=== PATIENT | male | born 1940 | race Hispanic/Latino ===

== ENCOUNTER 2017-11-19 14:04 | Inpatient (IN) | payer MEDICARE ==
[2017-11-19] MEDS ORDERED: DUONEB *Not for PRN Use IH ONE (15:06)
--- NOTE | 2017-11-19 16:30 | Emergency Department Report ---
ED Shortness of Breath HPI - General Chief Complaint: Dyspnea/Respdistress Stated Complaint: ABDOMINAL PAIN Time Seen by Provider: 11/19/17 16:29 Source: EMS Mode of arrival: Ambulatory Limitations: No Limitations - History of Present Illness MD Complaint: shortness of breath -: Gradual Severity: moderate Pain Scale: 5 Quality: aching Consistency: constant Improves With: nothing Worsens With: nothing Associated Symptoms: abdominal pain Treatments Prior to Arrival: none - Related Data Home Oxygen Therapy: Yes Previous Rx's Medication Instructions Recorded Last Taken Type ALBUTEROL Inhaler [ProAir HFA 2 puff IH QID PRN #1 can 11/07/17 Unknown Rx Inhaler] Furosemide [Lasix TAB] 40 mg PO QDAY #30 tablet 11/07/17 Unknown Rx Lisinopril [Zestril TAB] 2.5 mg PO QDAY #30 tablet 11/07/17 Unknown Rx predniSONE [Deltasone] 20 mg PO QDAY #26 tab 11/07/17 Unknown Rx Allergies Allergy/AdvReac Type Severity Reaction Status Date / Time No Known Allergies Allergy Verified 11/02/17 02:06 ED Review of Systems ROS: Stated complaint: ABDOMINAL PAIN Other details as noted in HPI Comment: All other systems reviewed and negative Constitutional: denies: chills, fever Eyes: denies: eye pain ENT: denies: ear pain, epistaxis Respiratory: cough, shortness of breath Cardiovascular: denies: chest pain Endocrine: no symptoms reported Gastrointestinal: abdominal pain. denies: nausea, vomiting Genitourinary: denies: urgency, dysuria, frequency Musculoskeletal: denies: back pain, joint swelling Skin: denies: rash, change in color Neurological: denies: headache, numbness Psychiatric: denies: anxiety Hematological/Lymphatic: denies: easy bleeding, easy bruising ED Past Medical Hx - Past Medical History Previous Medical History?: Yes Hx Hypertension: No Hx CVA: No Hx Heart Attack/AMI: No Hx Congestive Heart Failure: Yes (unknown on lasix) Hx Diabetes: No Hx Deep Vein Thrombosis: No Hx Pulmonary Embolism: No Hx GERD: No Hx Liver Disease: No Hx Renal Disease: No Hx of Cancer: No Hx Sickle Cell Disease: No Hx Arthritis: No Hx Headaches / Migraines: No Hx Seizures: No Hx Kidney Stones: No Hx Psychiatric Treatment: No Hx Asthma: No Hx COPD: Yes Hx Tuberculosis: No Hx Dementia: No Hx HIV: No - Surgical History Past Surgical History?: Yes Hx Coronary Stent: No Hx Open Heart Surgery: No Hx Pacemaker: No Hx Internal Defibrillator: No Hx Cholecystectomy: No Hx Appendectomy: No Hx Breast Surgery: No Additional Surgical History: chest tube - Social History Smoking Status: Former Smoker Substance Use Type: None - Medications Home Medications: Home Medications Medication Instructions Recorded Confirmed Last Taken Type ALBUTEROL Inhaler [ProAir HFA 2 puff IH QID PRN #1 can 11/07/17 Unknown Rx Inhaler] Furosemide [Lasix TAB] 40 mg PO QDAY #30 tablet 11/07/17 Unknown Rx Lisinopril [Zestril TAB] 2.5 mg PO QDAY #30 tablet 11/07/17 Unknown Rx predniSONE [Deltasone] 20 mg PO QDAY #26 tab 11/07/17 Unknown Rx ED Physical Exam - General Limitations: No Limitations General appearance: alert, in no apparent distress - Head Head exam: Present: atraumatic, normocephalic, normal inspection - Eye Eye exam: Present: normal appearance, PERRL, EOMI Pupils: Present: normal accommodation - ENT ENT exam: Present: normal exam, other (Hearing Impaired.) - Neck Neck exam: Present: normal inspection, full ROM - Respiratory Respiratory exam: Present: normal lung sounds bilaterally. Absent: respiratory distress, wheezes, rhonchi - Cardiovascular Cardiovascular Exam: Present: regular rate, normal heart sounds - GI/Abdominal GI/Abdominal exam: Present: soft, tenderness (RUQ tenderness to palpation.), guarding, normal bowel sounds. Absent: rebound - Rectal Rectal exam: Present: deferred - Extremities Exam Extremities exam: Present: pedal edema - Back Exam Back exam: Present: normal inspection, full ROM - Neurological Exam Neurological exam: Present: alert, oriented X3, CN II-XII intact - Psychiatric Psychiatric exam: Present: normal affect, normal mood - Skin Skin exam: Present: warm, dry, intact, normal color ED Course Vital Signs 11/19/17 11/19/17 11/19/17 14:59 17:55 18:00 Temperature 97.8 F Pulse Rate 64 Respiratory 25 H Rate Blood Pressure 107/67 128/71 103/63 Blood Pressure 107/67 [Right] O2 Sat by Pulse 100 Oximetry 11/19/17 11/19/17 11/19/17 18:09 18:14 18:17 Temperature 98.3 F 98.3 F Pulse Rate 100 H 107 H Respiratory 28 H 28 H 28 H Rate Blood Pressure Blood Pressure 103/63 103/68 [Right] O2 Sat by Pulse 92 86 95 Oximetry - Reevaluation(s) Reevaluation #1: 11/19/17 20:[address] Smith the hospitalist on-call. He will admit patient to the hospital for further evaluation and management. I will also consult pulmonology. ED Medical Decision Making - Lab Data Result diagrams: 11/19/17 16:29 11/19/17 16:49 - Radiology Data Radiology results: report reviewed, image reviewed - Medical Decision Making Abdominal Pain. Shortness of Breath. Critical care attestation.: If time is entered above; I have spent that time in minutes in the direct care of this critically ill patient, excluding procedure time. ED Disposition Clinical Impression: Loculated pleural effusion, Pleural effusion, Shortness of breath, Right upper quadrant abdominal pain Disposition: OP ADMIT IP TO THIS HOSP Is pt being admited?: Yes Does the pt Need Aspirin: No Condition: Stable Referrals: ONEIL TURCIOS MD [Primary Care Provider] - 3-5 Days Time of Disposition: 20:21
[2017-11-19 16:56] LABS: Hematocrit 36.8 % (35.5-45.6); Hemoglobin 12.1 gm/dl (11.8-15.2); Mean Corpuscular HGB Conc 33 % (32-34); Mean Corpuscular Hemoglobin 29 pg (28-32); Mean Corpuscular Volume 88 fl (84-94); Platelet Count 201 K/mm3 (140-440); Red Cell Distribution Width 13.3 % (13.2-15.2)
[2017-11-19 17:06] LABS: BUN/Creatinine Ratio 38; Blood Urea Nitrogen 23 mg/dL (9-20); Calcium 8.1 mg/dL (8.4-10.2); Hemolysis Index 10
[2017-11-19 17:10] LABS: INR 0.89 (0.87-1.13)
[2017-11-19 17:11] LABS: Partial Thromboplastin Time 24.2 Sec. (24.2-36.6)
[2017-11-19 17:17] LABS: Creatine Kinase MB 2.9 ng/mL (0.0-4.0)
[2017-11-19 17:23] LABS: Alanine Aminotransferase 12 units/L (7-56); Albumin 2.7 g/dL (3.9-5); BUN/Creatinine Ratio 40; Blood Urea Nitrogen 24 mg/dL (9-20); Calcium 8.3 mg/dL (8.4-10.2); Hemolysis Index 9; Lipase 14 units/L (13-60)
[2017-11-19 17:38] LABS: Band Neutrophils # (Manual) 0.1 K/mm3; Basophils % (Manual) 0 % (0.0-1.8); Eosinophils % (Manual) 0 % (0.0-4.3); Platelet Estimate Consistent w Auto; Total Cells Counted 100
--- NOTE | 2017-11-19 17:58 | XRay Report ---
FINAL REPORT EXAM: XR CHEST ROUTINE 2V HISTORY: Shortness of breath TECHNIQUE: PA and lateral views of the chest PRIORS: CXR 11/04/2017 FINDINGS: Lines, tubes, and devices: N/A Lungs and pleura: Trachea is normal in position. Chronic blunting of both costophrenic angles is stable consistent with bilateral effusions. Linear scarring in the right midlung zone is again noted infiltrate in the right lung base has improved. Cardiomediastinal silhouette: Cardiac and mediastinal silhouettes are unremarkable. Other: Bony structures are intact. IMPRESSION: Improved infiltrate in the right base. Stable bilateral effusions.
--- NOTE | 2017-11-19 19:13 | Cat Scan Report ---
FINAL REPORT EXAM: CT ABDOMEN W CON HISTORY: RUQ abdominal pain TECHNIQUE: Standard enhanced CT of the abdomen. Coronal and sagittal reconstruction was also performed. Delayed imaging through the kidneys and bladder was obtained. Contrast: Intravenous contrast given PRIORS: CT chest 10/31/2017 FINDINGS: Within the abdomen, the liver, spleen, gallbladder, adrenal glands, and right kidney are unremarkable. There is a bilobed 3.4 x 2.1 cm cyst off the lower pole left kidney. There is thinning of the pancreas again noted. No evidence for retroperitoneal lymphadenopathy is seen. The bowel loops have normal caliber. No soft tissue mass, fluid collection, inflammatory change, or free air is seen within the abdomen. The appendix is not visualized. Celiac artery origin off the aorta is not visualized. There is also narrowing of the superior mesenteric artery (sagittal image 78, series 605). Images through the upper abdomen include the lung bases which are further evaluation on the dedicated CT chest performed at the same time. Bony structures show is remote fracture deformities of the posterior left 9th and 10th ribs causing a bony bridging. Severe degenerative disc narrowing throughout the entire lumbar spine is seen. Focal 1.3 cm lucency at L2 is of uncertain clinical significance and not imaged previously. However, this is associated with extensive degenerative change at that level and may be a subchondral cyst. There is extensive osteophytic bridging from L2. IMPRESSION: 1. no acute intra-abdominal process noted. 2. Degenerative changes in the lumbar spine 3. Low-density cyst in the left kidney 4. 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
--- NOTE | 2017-11-19 19:22 | Cat Scan Report ---
FINAL REPORT EXAM: CT CHEST W CON HISTORY: Dyspnea TECHNIQUE: Standard enhanced CT of the chest at 2.5 mm axial increments. Coronal and sagittal reconstruction was also obtained. Contrast: Intravenous contrast given PRIORS: CT chest 11/02/2017 FINDINGS: Underlying COPD is again noted. There is pleural-based density in the lateral left upper lobe (axial image 71, series 2) which is similar to the previous study. No pneumothorax is currently identified. Alveolar infiltrate seen previously in the right lung have resolved. However, there is a large free-flowing low-density right pleural effusion with partial loculation along the lateral chest wall. Minimal adjacent compressive atelectasis in the right lower lobe is seen. There a tiny left pleural effusion with adjacent consolidation in the left lung base medially. This finding is similar to the previous study. There is no evidence for mediastinal, hilar, or axillary adenopathy. The esophagus is collapsed. The trachea is midline. Cardiovascular structures are within normal limits. Cardiac size and aorta are normal. Images through the lung bases include upper abdomen which will be further evaluated with the dedicated CT abdomen performed at the same time. Bony structures show no focal abnormalities. Remote healed fractures involving the left 5th through 7th ribs are noted. There is bony bridging between the posterior left 9th and 10th ribs due to remote fracture. IMPRESSION: 1. Resolution of previous right-sided pneumothorax and right-sided alveolar infiltrates 2. Large free-flowing right pleural effusion which is partially loculated along the lateral chest wall 3. Small left pleural effusion with adjacent consolidation in the left base medially, stable. 4. Underlying COPD again noted 5. Numerous remote left rib deformities. 5. Stable rounded pleural-based scarring in the lateral left upper lobe
[2017-11-19] MEDS ORDERED: LEVAQUIN 750MG/150ML 750 MG/150 ML BAG IV ONE (19:45)
[2017-11-19 20:10] LABS: Bacteria,Urine 1+ /HPF (Negative); Bilirubin,Urine NEG (Negative); Blood,Urine NEG (Negative); Color,Urine Yellow (Yellow); Mucus,Urine FEW /HPF; Protein,Urine <15 mg/dL mg/dL (Negative); Urobilinogen,Urine < 2.0 mg/dL (<2.0)
[2017-11-19] MEDS ORDERED: MORPHINE IV PRN ×2 (20:34→22:09)
[2017-11-19] MEDS ORDERED: TYLENOL PO PRN (22:09)
[2017-11-19] MEDS ORDERED: SODIUM CHLORIDE FLUSH SYRINGE 10 ML IV PRN (22:09)
[2017-11-19] MEDS ORDERED: ZOFRAN IV PRN (22:09)
--- NOTE | 2017-11-19 22:12 | History and Physical Report ---
History of Present Illness Date of examination: 11/19/17 History of present illness: 77-year-old man with a history of CHF, COPD on home oxygen, so the emergency room with complaints of abdominal pain located in the right upper quadrant, stated that the pain feels like his ulcer pain, constant, intensity while attending, no radiation, he can't identify exacerbating or relieving factors. No nausea vomiting, diarrhea, fever or chills. Complained of cough productive of yellow phlegm, shortness of breath Review of systems Constitutional: no weight loss, chills Ears, eyes, nose, mouth and throat: no nasal congestion, no nasal discharge, no sinus pressure, no vision change, no red eye. Neck: No neck pain or rigidity. Cardiovascular: no chest pain, palpitations Respiratory:+ cough Gastrointestinal: no abdominal pain, hematochezia Genitourinary : no dysuria, frequency , no hematuria Musculoskeletal: no joint swelling or muscle ache Integumentary: no rash, no pruritis Neurological: no parathesias, no numbness, no focal weakness Endocrine: no cold or heat intolerance, no polyuria or polydipsia Hematologic/Lymphatic: no easy bruising, no easy bleeding, no gland swelling Allergic/Immunologic: no urticaria, no angioedema. PAST MEDICAL HISTORY: CHF, COPD on home oxygen PAST SURGICAL HISTORY: peptic ulcer surgery SOCIAL HISTORY: Denies alcohol, tobacco, drugs FAMILY HISTORY: Hypertension Medications and Allergies Allergies Allergy/AdvReac Type Severity Reaction Status Date / Time No Known Allergies Allergy Verified 11/02/17 02:06 Home Medications Medication Instructions Recorded Confirmed Last Taken Type ALBUTEROL Inhaler [ProAir HFA 2 puff IH QID PRN #1 can 11/07/17 Unknown Rx Inhaler] Furosemide [Lasix TAB] 40 mg PO QDAY #30 tablet 11/07/17 Unknown Rx Lisinopril [Zestril TAB] 2.5 mg PO QDAY #30 tablet 11/07/17 Unknown Rx predniSONE [Deltasone] 20 mg PO QDAY #26 tab 11/07/17 Unknown Rx Active Meds: Active Medications Morphine Sulfate (Morphine) 4 mg IV Q4H PRN PRN Reason: Pain, Moderate (4-6) Last Admin: 11/19/17 20:48 Dose: 4 mg Exam - Physical Exam Narrative exam: Gen. appearance: Patient lying in bed, no apparent distress HEENT: Normocephalic, atraumatic, pupils equally round and reactive to light, extraocular movement intact, and no sclericterus,. No JVD or thyromegaly or nodule,neck supple, no carotid bruit ,mucous membranes moist, no exudate or erythema Heart: S1, S2, regular rate and rhythm Lungs: Crackles bilaterally, breathing comfortable Abdomen: Positive bowel sounds, nontender, nondistended, no organomegaly Extremity:+ edema, no cyanosis, clubbing Skin: No rash, nodules, warm, dry Neuro: Oriented 3, cranial nerves II-12 intact, speech is fluent, motor and sensory intact - Constitutional Vitals: Temp Pulse Resp BP Pulse Ox 98.2 F 99 H 16 99/57 100 11/19/17 19:30 11/19/17 21:00 11/19/17 21:18 11/19/17 21:00 11/19/17 21:00 Results - Labs CBC & Chem 7: 11/19/17 16:29 11/19/17 16:49 Labs: Abnormal lab results 11/19/17 11/19/17 11/19/17 Range/Units 16:29 16:29 16:49 WBC 14.1 H (4.5-11.0) K/mm3 Seg Neuts % (Manual) 93.0 H (40.0-70.0) % Lymphocytes % (Manual) 1.0 L (13.4-35.0) % Seg Neutrophils # Man 13.1 H (1.8-7.7) K/mm3 Lymphocytes # (Manual) 0.1 L (1.2-5.4) K/mm3 D-Dimer 1457.94 H (0-234) ng/mlDDU Sodium 132 L (137-145) mmol/L Chloride 89.5 L (98-107) mmol/L Carbon Dioxide 34 H (22-30) mmol/L BUN 23 H (9-20) mg/dL Creatinine 0.6 L (0.8-1.5) mg/dL Glucose 116 H (75-100) mg/dL Calcium 8.1 L (8.4-10.2) mg/dL Total Creatine Kinase (55-170) units/L CK-MB (CK-2) Rel Index (0-4) Total Protein (6.3-8.2) g/dL Albumin (3.9-5) g/dL Ur Specific [place] (1.003-1.030) Urine WBC (Auto) (0.0-6.0) /HPF 11/19/17 11/19/17 Range/Units 16:49 19:49 WBC (4.5-11.0) K/mm3 Seg Neuts % (Manual) (40.0-70.0) % Lymphocytes % (Manual) (13.4-35.0) % Seg Neutrophils # Man (1.8-7.7) K/mm3 Lymphocytes # (Manual) (1.2-5.4) K/mm3 D-Dimer (0-234) ng/mlDDU Sodium 132 L (137-145) mmol/L Chloride 88.5 L (98-107) mmol/L Carbon Dioxide 33 H (22-30) mmol/L BUN 24 H (9-20) mg/dL Creatinine 0.6 L (0.8-1.5) mg/dL Glucose 109 H (75-100) mg/dL Calcium 8.3 L (8.4-10.2) mg/dL Total Creatine Kinase 14 L (55-170) units/L CK-MB (CK-2) Rel Index 20.7 H (0-4) Total Protein 4.8 L (6.3-8.2) g/dL Albumin 2.7 L (3.9-5) g/dL Ur Specific [place] 1.039 H (1.003-1.030) Urine WBC (Auto) 79.0 H (0.0-6.0) /HPF - Imaging and Cardiology EKG: image reviewed Chest x-ray: report reviewed CT scan - abdomen: report reviewed CT scan - chest: report reviewed CT scan - pelvis: report reviewed Assessment and Plan Assessment A large right loculated pleural effusion Pneumonia CHF, stable Hypertension COPD, stable Plan Admit to medicine Diet IV antibiotic, consult pulmonary Continue appropriateout patient medications DVT prophylaxis
[2017-11-20] MEDS ORDERED: DUONEB *Not for PRN Use IH SCH (02:00)
[2017-11-20 05:26] LABS: BUN/Creatinine Ratio 33; Blood Urea Nitrogen 20 mg/dL (9-20); Calcium 7.9 mg/dL (8.4-10.2); Hemolysis Index 5
[2017-11-20 05:27] LABS: Hematocrit 33.3 % (35.5-45.6); Hemoglobin 11.2 gm/dl (11.8-15.2); Mean Corpuscular HGB Conc 34 % (32-34); Mean Corpuscular Hemoglobin 29 pg (28-32); Mean Corpuscular Volume 87 fl (84-94); Mean Platelet Volume 7.6 fl (6-12); Platelet Count 176 K/mm3 (140-440); Red Blood Count 3.82 M/mm3 (3.65-5.03); Red Cell Distribution Width 13.5 % (13.2-15.2)
[2017-11-20 08:22] LABS: Band Neutrophils # (Manual) 0.6 K/mm3; Basophils % (Manual) 0 % (0.0-1.8); Eosinophils % (Manual) 0 % (0.0-4.3); RBC Morphology Normal; Total Cells Counted 100
[2017-11-20] MEDS: DUONEB *Not for PRN Use IH SCH ×3 (09:12→20:24)
[2017-11-20] MEDS ORDERED: LOVENOX SUB-Q SCH (10:00)
[2017-11-20] MEDS: LOVENOX SUB-Q SCH (11:08)
[2017-11-20] MEDS: SODIUM CHLORIDE FLUSH SYRINGE 10 ML IV SCH ×2 (11:12→23:14)
--- NOTE | 2017-11-20 14:54 | Progress Note ---
Assessment and Plan Assessment and plan: Abdominal pain, Etiology unclear. Will obtain further imaging of RUQ Bilateral pleural effusion right more than left. Pulmonology consulted. Chronic respiratory failure due to COPD, on home Oxygen. COPD on home Oxygen. Continue supplemental Oxygen Chronic CHF. May get Echocardiogram left kidney cyst . To follow as outpatient DVT prophylaxis with Lovenox. Full code status. Protein energy malnutrition. Hospitalist Physical - Physical exam Narrative exam: General:Not in acute distress, lying in bed,malnourished HEENT:Normocephalic, atraumatic Neck:supple,no JVD Lungs: Clear to auscultation, Decreased breath sounds bibasilar, no rales, no wheeze Heart:S1 and S2 regular, no murmurs, rubs or gallop Abd: soft, non tender,non distended, normal bowel sounds Ext: Edema, no clubbing or cyanosis Neuro:Awake,alert,oriented x 3, moves all extremities, Psych:normal mood - Constitutional Vitals: Temp Pulse Resp BP Pulse Ox 97.8 F 108 H 20 110/62 93 11/20/17 11:19 11/20/17 14:38 11/20/17 14:38 11/20/17 11:19 11/20/17 09:18 Results - Labs CBC & Chem 7: 11/20/17 04:35 11/20/17 04:35 Labs: Laboratory Last Values WBC 12.4 K/mm3 (4.5-11.0) H 11/20/17 04:35 RBC 3.82 M/mm3 (3.65-5.03) 11/20/17 04:35 Hgb 11.2 gm/dl (11.8-15.2) L 11/20/17 04:35 Hct 33.3 % (35.5-45.6) L 11/20/17 04:35 MCV 87 fl (84-94) 11/20/17 04:35 MCH 29 pg (28-32) 11/20/17 04:35 MCHC 34 % (32-34) 11/20/17 04:35 RDW 13.5 % (13.2-15.2) 11/20/17 04:35 Plt Count 176 K/mm3 (140-440) 11/20/17 04:35 Add Manual Diff Complete 11/20/17 04:35 Total Counted 100 11/20/17 04:35 Seg Neutrophils % Supervisor Sunglasses 11/19/17 16:29 Seg Neuts % (Manual) 81.0 % (40.0-70.0) H 11/20/17 04:35 Band Neutrophils % 5.0 % 11/20/17 04:35 Lymphocytes % (Manual) 7.0 % (13.4-35.0) L 11/20/17 04:35 Reactive Lymphs % (Man) 0 % 11/20/17 04:35 Monocytes % (Manual) 7.0 % (0.0-7.3) 11/20/17 04:35 Eosinophils % (Manual) 0 % (0.0-4.3) 11/20/17 04:35 Basophils % (Manual) 0 % (0.0-1.8) 11/20/17 04:35 Metamyelocytes % 0 % 11/20/17 04:35 Myelocytes % 0 % 11/20/17 04:35 Promyelocytes % 0 % 11/20/17 04:35 Blast Cells % 0 % 11/20/17 04:35 Nucleated RBC % Not Reportable 11/20/17 04:35 Seg Neutrophils # Man 10.0 K/mm3 (1.8-7.7) H 11/20/17 04:35 Band Neutrophils # 0.6 K/mm3 11/20/17 04:35 Lymphocytes # (Manual) 0.9 K/mm3 (1.2-5.4) L 11/20/17 04:35 Abs React Lymphs (Man) 0.0 K/mm3 11/20/17 04:35 Monocytes # (Manual) 0.9 K/mm3 (0.0-0.8) H 11/20/17 04:35 Eosinophils # (Manual) 0.0 K/mm3 (0.0-0.4) 11/20/17 04:35 Basophils # (Manual) 0.0 K/mm3 (0.0-0.1) 11/20/17 04:35 Metamyelocytes # 0.0 K/mm3 11/20/17 04:35 Myelocytes # 0.0 K/mm3 11/20/17 04:35 Promyelocytes # 0.0 K/mm3 11/20/17 04:35 Blast Cells # 0.0 K/mm3 11/20/17 04:35 WBC Morphology Not Reportable 11/20/17 04:35 Hypersegmented Neuts Not Reportable 11/20/17 04:35 Hyposegmented Neuts Not Reportable 11/20/17 04:35 Hypogranular Neuts Not Reportable 11/20/17 04:35 Smudge Cells Not Reportable 11/20/17 04:35 Toxic Granulation Not Reportable 11/20/17 04:35 Toxic Vacuolation Not Reportable 11/20/17 04:35 Dohle Bodies Not Reportable 11/20/17 04:35 Pelger-Huet Anomaly Not Reportable 11/20/17 04:35 Armando Rods Not Reportable 11/20/17 04:35 Platelet Estimate Appears normal 11/20/17 04:35 Clumped Platelets Not Reportable 11/20/17 04:35 Plt Clumps, EDTA Not Reportable 11/20/17 04:35 Large Platelets Not Reportable 11/20/17 04:35 Giant Platelets Not Reportable 11/20/17 04:35 Platelet Satelliting Not Reportable 11/20/17 04:35 Plt Morphology Comment Not Reportable 11/20/17 04:35 RBC Morphology Normal 11/20/17 04:35 Dimorphic RBCs Not Reportable 11/20/17 04:35 Polychromasia Not Reportable 11/20/17 04:35 Hypochromasia Not Reportable 11/20/17 04:35 Poikilocytosis Not Reportable 11/20/17 04:35 Anisocytosis Not Reportable 11/20/17 04:35 Microcytosis Not Reportable 11/20/17 04:35 Macrocytosis Not Reportable 11/20/17 04:35 Spherocytes Not Reportable 11/20/17 04:35 Pappenheimer Bodies Not Reportable 11/20/17 04:35 Sickle Cells Not Reportable 11/20/17 04:35 Target Cells Not Reportable 11/20/17 04:35 Tear Drop Cells Not Reportable 11/20/17 04:35 Ovalocytes Not Reportable 11/20/17 04:35 Helmet Cells Not Reportable 11/20/17 04:35 Patel-[place] Bodies Not Reportable 11/20/17 04:35 [place] Rings Not Reportable 11/20/17 04:35 Alexus Cells Not Reportable 11/20/17 04:35 Bite Cells Not Reportable 11/20/17 04:35 Crenated Cell Not Reportable 11/20/17 04:35 Elliptocytes Not Reportable 11/20/17 04:35 Acanthocytes (Spur) Not Reportable 11/20/17 04:35 Rouleaux Not Reportable 11/20/17 04:35 Hemoglobin C Crystals Not Reportable 11/20/17 04:35 Schistocytes Not Reportable 11/20/17 04:35 Malaria parasites Not Reportable 11/20/17 04:35 Domenico Bodies Not Reportable 11/20/17 04:35 Hem Pathologist Commnt No 11/20/17 04:35 PT 12.5 Sec. (12.2-14.9) 11/19/17 16:49 INR 0.89 (0.87-1.13) 11/19/17 16:49 APTT 24.2 Sec. (24.2-36.6) 11/19/17 16:49 D-Dimer 1457.94 ng/mlDDU (0-234) H 11/19/17 16:49 Sodium 131 mmol/L (137-145) L 11/20/17 04:35 Potassium 4.2 mmol/L (3.6-5.0) 11/20/17 04:35 Chloride 89.9 mmol/L (98-107) L 11/20/17 04:35 Carbon Dioxide 36 mmol/L (22-30) H 11/20/17 04:35 Anion Gap 9 mmol/L 11/20/17 04:35 BUN 20 mg/dL (9-20) 11/20/17 04:35 Creatinine 0.6 mg/dL (0.8-1.5) L 11/20/17 04:35 Estimated GFR > 60 ml/min 11/20/17 04:35 BUN/Creatinine Ratio 33 % 11/20/17 04:35 Glucose 90 mg/dL (75-100) 11/20/17 04:35 Calcium 7.9 mg/dL (8.4-10.2) L 11/20/17 04:35 Magnesium 2.00 mg/dL (1.7-2.3) 11/19/17 16:49 Total Bilirubin 0.60 mg/dL (0.1-1.2) 11/19/17 16:49 AST 12 units/L (5-40) 11/19/17 16:49 ALT 12 units/L (7-56) 11/19/17 16:49 Alkaline Phosphatase 85 units/L (35-129) 11/19/17 16:49 Total Creatine Kinase 14 units/L (55-170) L 11/19/17 16:49 CK-MB (CK-2) 2.9 ng/mL (0.0-4.0) 11/19/17 16:49 CK-MB (CK-2) Rel Index 20.7 (0-4) H 11/19/17 16:49 Troponin T 0.022 ng/mL (0.00-0.029) 11/19/17 16:49 Total Protein 4.8 g/dL (6.3-8.2) L 11/19/17 16:49 Albumin 2.7 g/dL (3.9-5) L 11/19/17 16:49 Albumin/Globulin Ratio 1.3 % 11/19/17 16:49 Lipase 14 units/L (13-60) 11/19/17 16:49 Urine Color Yellow (Yellow) 11/19/17 19:49 Urine Turbidity Clear (Clear) 11/19/17 19:49 Urine pH 6.0 (5.0-7.0) 11/19/17 19:49 Ur Specific [place] 1.039 (1.003-1.030) H 11/19/17 19:49 Urine Protein <15 mg/dl mg/dL (Negative) 11/19/17 19:49 Urine Glucose (UA) Neg mg/dL (Negative) 11/19/17 19:49 Urine Ketones Neg mg/dL (Negative) 11/19/17 19:49 Urine Blood Neg (Negative) 11/19/17 19:49 Urine Nitrite Neg (Negative) 11/19/17 19:49 Urine Bilirubin Neg (Negative) 11/19/17 19:49 Urine Urobilinogen < 2.0 mg/dL (<2.0) 11/19/17 19:49 Ur Leukocyte Esterase Lg (Negative) 11/19/17 19:49 Urine WBC (Auto) 79.0 /HPF (0.0-6.0) H 11/19/17 19:49 Urine RBC (Auto) 3.0 /HPF (0.0-6.0) 11/19/17 19:49 U Epithel Cells (Auto) 1.0 /HPF (0-13.0) 11/19/17 19:49 Urine Bacteria (Auto) 1+ /HPF (Negative) 11/19/17 19:49 Urine Mucus Few /HPF 11/19/17 19:49
--- NOTE | 2017-11-20 17:34 | Consultation ---
History of Present Illness Consult date: 11/20/17 Reason for consult: pleural effusion History of present illness: 77-year-old man with a history of CHF, COPD on home oxygen, so the emergency room with complaints of abdominal pain located in the right upper quadrant, stated that the pain feels like his ulcer pain, constant, intensity while attending, no radiation, he can't identify exacerbating or relieving factors. No nausea vomiting, diarrhea, fever or chills. Complained of cough productive of yellow phlegm, shortness of breath Patient is a poor historian and doesn't feel he has significant problems with his breathing. However he is concerned about his abdominal discomfort which is in right upper quadrant. Past History Past Medical History: COPD, other (congestive heart failure) Past Surgical History: Other (history off surgery for peptic ulcer disease) Social history: no significant social history Family history: no significant family history Medications and Allergies Allergies Allergy/AdvReac Type Severity Reaction Status Date / Time No Known Allergies Allergy Verified 11/02/17 02:06 Home Medications Medication Instructions Recorded Confirmed Last Taken Type ALBUTEROL Inhaler [ProAir HFA 2 puff IH QID PRN #1 can 11/07/17 Unknown Rx Inhaler] Furosemide [Lasix TAB] 40 mg PO QDAY #30 tablet 11/07/17 Unknown Rx Lisinopril [Zestril TAB] 2.5 mg PO QDAY #30 tablet 11/07/17 Unknown Rx predniSONE [Deltasone] 20 mg PO QDAY #26 tab 11/07/17 Unknown Rx Active Meds: Active Medications Acetaminophen (Tylenol) 650 mg PO Q4H PRN PRN Reason: Pain MILD(1-3)/Fever >100.5/PRINCE Albuterol/Ipratropium (Duoneb *Not For Prn Use*) 1 ampul IH TIDRT COUNT INCLUDES THE [facility] Last Admin: 11/20/17 14:19 Dose: 1 ampul Enoxaparin Sodium (Lovenox) 40 mg SUB-Q QDAY@1000 COUNT INCLUDES THE [facility] Last Admin: 11/20/17 11:08 Dose: 40 mg Morphine Sulfate (Morphine) 2 mg IV Q4H PRN PRN Reason: Pain, Moderate (4-6) Ondansetron HCl (Zofran) 4 mg IV Q8H PRN PRN Reason: Nausea And Vomiting Sodium Chloride (Sodium Chloride Flush Syringe 10 Ml) 10 ml IV BID JOLEEN Last Admin: 11/20/17 11:12 Dose: 10 ml Sodium Chloride (Sodium Chloride Flush Syringe 10 Ml) 10 ml IV PRN PRN PRN Reason: LINE FLUSH Review of Systems ROS unobtainable: due to mental status Gastrointestinal: abdominal pain Physical Examination Vital signs: Vital Signs Temp Pulse Resp BP Pulse Ox 97.8 F 64 18 107/67 100 11/19/17 14:59 11/19/17 14:59 11/19/17 14:59 11/19/17 14:59 11/19/17 14:59 General appearance: no acute distress Eyes: non-icteric ENT: oropharynx moist Neck: supple, no lymphadenopathy, no JVD Ascultation: Right: diminished breath sounds (right base) Percussion: Right: dull ( right lower lobe) Cardiovascular: regular rate and rhythm Gastrointestinal: normoactive bowel sounds, tender (mildly in right upper quadrant) Extremities: no cyanosis, no edema Musculoskeletal: no deformities normal mental status mood appropriate Results - Laboratory Findings CBC and BMP: 11/20/17 04:35 11/20/17 04:35 PT/INR, D-dimer PT 12.5 Sec. (12.2-14.9) 11/19/17 16:49 INR 0.89 (0.87-1.13) 11/19/17 16:49 D-Dimer 1457.94 ng/mlDDU (0-234) H 11/19/17 16:49 Abnormal lab findings: Abnormal Labs 11/19/17 11/19/17 11/19/17 16:29 16:29 16:49 WBC 14.1 H Hgb Hct Seg Neuts % (Manual) 93.0 H Lymphocytes % (Manual) 1.0 L Seg Neutrophils # Man 13.1 H Lymphocytes # (Manual) 0.1 L Monocytes # (Manual) D-Dimer 1457.94 H Sodium 132 L Chloride 89.5 L Carbon Dioxide 34 H BUN 23 H Creatinine 0.6 L Glucose 116 H Calcium 8.1 L Total Creatine Kinase CK-MB (CK-2) Rel Index Total Protein Albumin Ur Specific [place] Urine WBC (Auto) 11/19/17 11/19/17 11/20/17 16:49 19:49 04:35 WBC 12.4 H Hgb 11.2 L Hct 33.3 L Seg Neuts % (Manual) 81.0 H Lymphocytes % (Manual) 7.0 L Seg Neutrophils # Man 10.0 H Lymphocytes # (Manual) 0.9 L Monocytes # (Manual) 0.9 H D-Dimer Sodium 132 L Chloride 88.5 L Carbon Dioxide 33 H BUN 24 H Creatinine 0.6 L Glucose 109 H Calcium 8.3 L Total Creatine Kinase 14 L CK-MB (CK-2) Rel Index 20.7 H Total Protein 4.8 L Albumin 2.7 L Ur Specific [place] 1.039 H Urine WBC (Auto) 79.0 H 11/20/17 04:35 WBC Hgb Hct Seg Neuts % (Manual) Lymphocytes % (Manual) Seg Neutrophils # Man Lymphocytes # (Manual) Monocytes # (Manual) D-Dimer Sodium 131 L Chloride 89.9 L Carbon Dioxide 36 H BUN Creatinine 0.6 L Glucose Calcium 7.9 L Total Creatine Kinase CK-MB (CK-2) Rel Index Total Protein Albumin Ur Specific [place] Urine WBC (Auto) - Diagnostic Findings CT scan - chest: image reviewed (bilateral pleural effusion and moderate on the right which may be partially loculated and small possibly loculated in the left. ) Assessment and Plan Impression: Bilateral pleural effusions appears to be chronic. Right pleural effusion seems to have increased but and also may be partially loculated. History of COPD History of congestive heart failure Right upper quadrant abdominal pain rule out gallbladder disease Recommendation: Consider ultrasound-guided thoracentesis on the right side. Echocardiogram Complete pulm function testing as outpatient to assess underlying COPD. Consider ultrasound of gallbladder regarding right upper quadrant abdominal pain
[2017-11-20] MEDS: MILK OF MAGNESIA PO PRN (23:14)
[2017-11-21 08:35] LABS: Hematocrit 31.4 % (35.5-45.6); Hemoglobin 11.1 gm/dl (11.8-15.2); Mean Platelet Volume 7.3 fl (6-12); Red Blood Count 3.65 M/mm3 (3.65-5.03); Red Cell Distribution Width 13.3 % (13.2-15.2)
[2017-11-21 08:43] LABS: BUN/Creatinine Ratio 38; Blood Urea Nitrogen 15 mg/dL (9-20); Hemolysis Index 6
[2017-11-21] MEDS: DUONEB *Not for PRN Use IH SCH ×3 (09:48→20:35)
[2017-11-21] MEDS: LOVENOX SUB-Q SCH (10:00)
--- NOTE | 2017-11-21 11:24 | Procedure Note ---
Date of procedure: 11/21/17 Pre-op diagnosis: Pleural effusion Post-op diagnosis: same Procedure: US guided right thoracentesis Findings: 1950 cc of brownish serous fluid removed. Anesthesia: local Surgeon: NAIMA MENENDEZ Estimated blood loss: none Specimen disposition: to lab Condition: stable Disposition: floor (2 hr post proc CXR ordered)
--- NOTE | 2017-11-21 11:28 | Ultrasound Report ---
ULTRASOUND THORACENTESIS INDICATION: Pleural effusion. COMPARISON: None similar. FINDINGS: Ultrasound guided right thoracentesis performed. Written informed consent obtained after explaining the risks and benefits. Patient brought in the ultrasound room. An appropriate skin site marked. Using standard sterile precautions and 1% lidocaine for local anesthesia, 5 Prydeinig Yueh catheter advanced into the pleural fluid. Total of approximately 1950 cc of reddish-brown serous fluid obtained with sample sent to the lab. Catheter removed and hemostasis achieved. Patient returned to room. No immediate complications. CONCLUSION: Status post right thoracentesis, as described. A 2 hour post procedure chest x-ray ordered. Dr. Cervantes present for and performed the entire procedure. Thank you for the opportunity to participate in this patient's care.
--- NOTE | 2017-11-21 13:30 | XRay Report ---
PORTABLE CHEST INDICATION: Right pleural effusion, status post right thoracentesis. COMPARISON: 11/19/2017 FINDINGS: Portable, frontal chest radiograph demonstrates improved right mid to lower lung hazy layering pleural fluid. Mild atelectasis remains. Small left lung base pleural effusion and mild atelectasis also again seen. Stable cardiomediastinal silhouette, aortic knob calcifications and osseous structures. EKG leads. CONCLUSION: No acute complication following right thoracentesis with findings, as above. Thank you for the opportunity to participate in this patient's care.
--- NOTE | 2017-11-21 13:58 | Progress Note ---
Assessment and Plan Assessment and plan: Abdominal pain, Etiology unclear. Will obtain further imaging of RUQ Bilateral pleural effusion right more than left. Had thoracentesis 1950ml from right today. Pulm following Chronic respiratory failure due to COPD, on home Oxygen. COPD on home Oxygen. Continue supplemental Oxygen Chronic systolic CHF. Echocardiogram done last month show EF 45-50% left kidney cyst . To follow as outpatient DVT prophylaxis with Lovenox. Full code status. Protein energy malnutrition. History Interval history: feels better, less shortness of breath Hospitalist Physical - Physical exam Narrative exam: General:Not in acute distress, lying in bed,malnourished HEENT:Normocephalic, atraumatic Neck:supple,no JVD Lungs: Clear to auscultation, Decreased breath sounds bibasilar, no rales, no wheeze Heart:S1 and S2 regular, no murmurs, rubs or gallop Abd: soft, non tender,non distended, normal bowel sounds Ext: Edema, no clubbing or cyanosis Neuro:Awake,alert,oriented x 3, moves all extremities, Psych:normal mood - Constitutional Vitals: Temp Pulse Resp BP Pulse Ox 98.0 F 102 H 18 110/70 100 11/21/17 07:40 11/21/17 10:00 11/21/17 10:00 11/21/17 07:40 11/21/17 09:50 Results - Labs CBC & Chem 7: 11/21/17 08:01 11/21/17 08:01 Labs: Laboratory Last Values WBC 10.9 K/mm3 (4.5-11.0) 11/21/17 08:01 RBC 3.65 M/mm3 (3.65-5.03) 11/21/17 08:01 Hgb 11.1 gm/dl (11.8-15.2) L 11/21/17 08:01 Hct 31.4 % (35.5-45.6) L 11/21/17 08:01 MCV 86 fl (84-94) 11/21/17 08:01 MCH 30 pg (28-32) 11/21/17 08:01 MCHC 35 % (32-34) H 11/21/17 08:01 RDW 13.3 % (13.2-15.2) 11/21/17 08:01 Plt Count 163 K/mm3 (140-440) 11/21/17 08:01 Add Manual Diff Complete 11/20/17 04:35 Total Counted 100 11/20/17 04:35 Seg Neutrophils % Formulation Scientist 11/19/17 16:29 Seg Neuts % (Manual) 81.0 % (40.0-70.0) H 11/20/17 04:35 Band Neutrophils % 5.0 % 11/20/17 04:35 Lymphocytes % (Manual) 7.0 % (13.4-35.0) L 11/20/17 04:35 Reactive Lymphs % (Man) 0 % 11/20/17 04:35 Monocytes % (Manual) 7.0 % (0.0-7.3) 11/20/17 04:35 Eosinophils % (Manual) 0 % (0.0-4.3) 11/20/17 04:35 Basophils % (Manual) 0 % (0.0-1.8) 11/20/17 04:35 Metamyelocytes % 0 % 11/20/17 04:35 Myelocytes % 0 % 11/20/17 04:35 Promyelocytes % 0 % 11/20/17 04:35 Blast Cells % 0 % 11/20/17 04:35 Nucleated RBC % Not Reportable 11/20/17 04:35 Seg Neutrophils # Man 10.0 K/mm3 (1.8-7.7) H 11/20/17 04:35 Band Neutrophils # 0.6 K/mm3 11/20/17 04:35 Lymphocytes # (Manual) 0.9 K/mm3 (1.2-5.4) L 11/20/17 04:35 Abs React Lymphs (Man) 0.0 K/mm3 11/20/17 04:35 Monocytes # (Manual) 0.9 K/mm3 (0.0-0.8) H 11/20/17 04:35 Eosinophils # (Manual) 0.0 K/mm3 (0.0-0.4) 11/20/17 04:35 Basophils # (Manual) 0.0 K/mm3 (0.0-0.1) 11/20/17 04:35 Metamyelocytes # 0.0 K/mm3 11/20/17 04:35 Myelocytes # 0.0 K/mm3 11/20/17 04:35 Promyelocytes # 0.0 K/mm3 11/20/17 04:35 Blast Cells # 0.0 K/mm3 11/20/17 04:35 WBC Morphology Not Reportable 11/20/17 04:35 Hypersegmented Neuts Not Reportable 11/20/17 04:35 Hyposegmented Neuts Not Reportable 11/20/17 04:35 Hypogranular Neuts Not Reportable 11/20/17 04:35 Smudge Cells Not Reportable 11/20/17 04:35 Toxic Granulation Not Reportable 11/20/17 04:35 Toxic Vacuolation Not Reportable 11/20/17 04:35 Dohle Bodies Not Reportable 11/20/17 04:35 Pelger-Huet Anomaly Not Reportable 11/20/17 04:35 Armando Rods Not Reportable 11/20/17 04:35 Platelet Estimate Appears normal 11/20/17 04:35 Clumped Platelets Not Reportable 11/20/17 04:35 Plt Clumps, EDTA Not Reportable 11/20/17 04:35 Large Platelets Not Reportable 11/20/17 04:35 Giant Platelets Not Reportable 11/20/17 04:35 Platelet Satelliting Not Reportable 11/20/17 04:35 Plt Morphology Comment Not Reportable 11/20/17 04:35 RBC Morphology Normal 11/20/17 04:35 Dimorphic RBCs Not Reportable 11/20/17 04:35 Polychromasia Not Reportable 11/20/17 04:35 Hypochromasia Not Reportable 11/20/17 04:35 Poikilocytosis Not Reportable 11/20/17 04:35 Anisocytosis Not Reportable 11/20/17 04:35 Microcytosis Not Reportable 11/20/17 04:35 Macrocytosis Not Reportable 11/20/17 04:35 Spherocytes Not Reportable 11/20/17 04:35 Pappenheimer Bodies Not Reportable 11/20/17 04:35 Sickle Cells Not Reportable 11/20/17 04:35 Target Cells Not Reportable 11/20/17 04:35 Tear Drop Cells Not Reportable 11/20/17 04:35 Ovalocytes Not Reportable 11/20/17 04:35 Helmet Cells Not Reportable 11/20/17 04:35 [place] Bodies Not Reportable 11/20/17 04:35 [place] Rings Not Reportable 11/20/17 04:35 Alexus Cells Not Reportable 11/20/17 04:35 Bite Cells Not Reportable 11/20/17 04:35 Crenated Cell Not Reportable 11/20/17 04:35 Elliptocytes Not Reportable 11/20/17 04:35 Acanthocytes (Spur) Not Reportable 11/20/17 04:35 Rouleaux Not Reportable 11/20/17 04:35 Hemoglobin C Crystals Not Reportable 11/20/17 04:35 Schistocytes Not Reportable 11/20/17 04:35 Malaria parasites Not Reportable 11/20/17 04:35 Domenico Bodies Not Reportable 11/20/17 04:35 Hem Pathologist Commnt No 11/20/17 04:35 PT 12.5 Sec. (12.2-14.9) 11/19/17 16:49 INR 0.89 (0.87-1.13) 11/19/17 16:49 APTT 24.2 Sec. (24.2-36.6) 11/19/17 16:49 D-Dimer 1457.94 ng/mlDDU (0-234) H 11/19/17 16:49 Sodium 131 mmol/L (137-145) L 11/21/17 08:01 Potassium 4.2 mmol/L (3.6-5.0) 11/21/17 08:01 Chloride 92.9 mmol/L (98-107) L 11/21/17 08:01 Carbon Dioxide 33 mmol/L (22-30) H 11/21/17 08:01 Anion Gap 9 mmol/L 11/21/17 08:01 BUN 15 mg/dL (9-20) 11/21/17 08:01 Creatinine 0.4 mg/dL (0.8-1.5) L 11/21/17 08:01 Estimated GFR > 60 ml/min 11/21/17 08:01 BUN/Creatinine Ratio 38 % 11/21/17 08:01 Glucose 90 mg/dL (75-100) 11/21/17 08:01 Calcium 8.0 mg/dL (8.4-10.2) L 11/21/17 08:01 Magnesium 2.00 mg/dL (1.7-2.3) 11/19/17 16:49 Total Bilirubin 0.60 mg/dL (0.1-1.2) 11/19/17 16:49 AST 12 units/L (5-40) 11/19/17 16:49 ALT 12 units/L (7-56) 11/19/17 16:49 Alkaline Phosphatase 85 units/L (35-129) 11/19/17 16:49 Total Creatine Kinase 14 units/L (55-170) L 11/19/17 16:49 CK-MB (CK-2) 2.9 ng/mL (0.0-4.0) 11/19/17 16:49 CK-MB (CK-2) Rel Index 20.7 (0-4) H 11/19/17 16:49 Troponin T 0.022 ng/mL (0.00-0.029) 11/19/17 16:49 NT-Pro-B Natriuret Pep 910.2 pg/mL (0-900) H 11/20/17 18:06 Total Protein 4.8 g/dL (6.3-8.2) L 11/19/17 16:49 Albumin 2.7 g/dL (3.9-5) L 11/19/17 16:49 Albumin/Globulin Ratio 1.3 % 11/19/17 16:49 Lipase 14 units/L (13-60) 11/19/17 16:49 Urine Color Yellow (Yellow) 11/19/17 19:49 Urine Turbidity Clear (Clear) 11/19/17 19:49 Urine pH 6.0 (5.0-7.0) 11/19/17 19:49 Ur Specific [place] 1.039 (1.003-1.030) H 11/19/17 19:49 Urine Protein <15 mg/dl mg/dL (Negative) 11/19/17 19:49 Urine Glucose (UA) Neg mg/dL (Negative) 11/19/17 19:49 Urine Ketones Neg mg/dL (Negative) 11/19/17 19:49 Urine Blood Neg (Negative) 11/19/17 19:49 Urine Nitrite Neg (Negative) 11/19/17 19:49 Urine Bilirubin Neg (Negative) 11/19/17 19:49 Urine Urobilinogen < 2.0 mg/dL (<2.0) 11/19/17 19:49 Ur Leukocyte Esterase Lg (Negative) 11/19/17 19:49 Urine WBC (Auto) 79.0 /HPF (0.0-6.0) H 11/19/17 19:49 Urine RBC (Auto) 3.0 /HPF (0.0-6.0) 11/19/17 19:49 U Epithel Cells (Auto) 1.0 /HPF (0-13.0) 11/19/17 19:49 Urine Bacteria (Auto) 1+ /HPF (Negative) 11/19/17 19:49 Urine Mucus Few /HPF 11/19/17 19:49 Fluid Type Pleural 11/21/17 00:01 Fluid Color [place] 11/21/17 00:01 Fluid Appearance Hazy 11/21/17 00:01
[2017-11-21 14:40] LABS: Total Cells Counted 100 /mm3
--- NOTE | 2017-11-21 15:30 | Progress Note ---
Assessment and Plan Impression: Bilateral pleural effusions appears to be chronic. Right pleural effusion seems to have increased but and also may be partially loculated. History of COPD History of congestive heart failure Right upper quadrant abdominal pain rule out gallbladder disease Recommendation: S/P ultrasound-guided thoracentesis on the right side. Echocardiogram Complete pulm function testing as outpatient to assess underlying COPD. Consider ultrasound of gallbladder regarding right upper quadrant abdominal pain Subjective Date of service: 11/21/17 Interval history: Patient underwent successful right thoracentesis approximately 2 L of brownish fluid was removed. Fluid analysis results are pending at this time. Patient reports breathing better. Abdominal discomfort is improved however he complained of constipation Objective Vital Signs - 12hr 11/21/17 11/21/17 11/21/17 07:40 08:00 09:49 Temperature 98.0 F Pulse Rate 105 H Pulse Rate [ Apical] Pulse Rate [ 102 H 102 H Bilateral Throughout] Respiratory 20 Rate Respiratory 19 20 Rate [Bilateral Throughout] Blood Pressure 110/70 Blood Pressure [Right] O2 Sat by Pulse 100 Oximetry 11/21/17 11/21/17 11/21/17 09:50 10:00 12:15 Temperature 97.4 F L Pulse Rate 61 Pulse Rate [ 102 H Apical] Pulse Rate [ Bilateral Throughout] Respiratory 18 19 Rate Respiratory Rate [Bilateral Throughout] Blood Pressure Blood Pressure 123/73 [Right] O2 Sat by Pulse 100 90 Oximetry 11/21/17 13:00 Temperature Pulse Rate 105 H Pulse Rate [ Apical] Pulse Rate [ Bilateral Throughout] Respiratory Rate Respiratory Rate [Bilateral Throughout] Blood Pressure Blood Pressure [Right] O2 Sat by Pulse Oximetry Constitutional: no acute distress Eyes: non-icteric ENT: oropharynx moist Neck: supple, no lymphadenopathy, no JVD Ascultation: Bilateral: clear Percussion: Right: dull ( right lower lobe) Cardiovascular: regular rate and rhythm Gastrointestinal: normoactive bowel sounds, tender (mildly in right upper quadrant) Extremities: no cyanosis, no edema Neurologic: normal mental status Psychiatric: mood appropriate CBC and BMP: 11/21/17 08:01 11/21/17 08:01 ABG, PT/INR, D-dimer: PT/INR, D-dimer PT 12.5 Sec. (12.2-14.9) 11/19/17 16:49 INR 0.89 (0.87-1.13) 11/19/17 16:49 D-Dimer 1457.94 ng/mlDDU (0-234) H 11/19/17 16:49 Abnormal lab findings: Abnormal Labs 11/19/17 11/19/17 11/19/17 16:29 16:29 16:49 WBC 14.1 H Hgb Hct MCHC Seg Neuts % (Manual) 93.0 H Lymphocytes % (Manual) 1.0 L Seg Neutrophils # Man 13.1 H Lymphocytes # (Manual) 0.1 L Monocytes # (Manual) D-Dimer 1457.94 H Sodium 132 L Chloride 89.5 L Carbon Dioxide 34 H BUN 23 H Creatinine 0.6 L Glucose 116 H Calcium 8.1 L Total Creatine Kinase CK-MB (CK-2) Rel Index NT-Pro-B Natriuret Pep Total Protein Albumin Ur Specific [place] Urine WBC (Auto) 11/19/17 11/19/17 11/20/17 16:49 19:49 04:35 WBC 12.4 H Hgb 11.2 L Hct 33.3 L MCHC Seg Neuts % (Manual) 81.0 H Lymphocytes % (Manual) 7.0 L Seg Neutrophils # Man 10.0 H Lymphocytes # (Manual) 0.9 L Monocytes # (Manual) 0.9 H D-Dimer Sodium 132 L Chloride 88.5 L Carbon Dioxide 33 H BUN 24 H Creatinine 0.6 L Glucose 109 H Calcium 8.3 L Total Creatine Kinase 14 L CK-MB (CK-2) Rel Index 20.7 H NT-Pro-B Natriuret Pep Total Protein 4.8 L Albumin 2.7 L Ur Specific [place] 1.039 H Urine WBC (Auto) 79.0 H 11/20/17 11/20/17 11/21/17 04:35 18:06 08:01 WBC Hgb 11.1 L Hct 31.4 L MCHC 35 H Seg Neuts % (Manual) Lymphocytes % (Manual) Seg Neutrophils # Man Lymphocytes # (Manual) Monocytes # (Manual) D-Dimer Sodium 131 L Chloride 89.9 L Carbon Dioxide 36 H BUN Creatinine 0.6 L Glucose Calcium 7.9 L Total Creatine Kinase CK-MB (CK-2) Rel Index NT-Pro-B Natriuret Pep 910.2 H Total Protein Albumin Ur Specific [place] Urine WBC (Auto) 11/21/17 08:01 WBC Hgb Hct MCHC Seg Neuts % (Manual) Lymphocytes % (Manual) Seg Neutrophils # Man Lymphocytes # (Manual) Monocytes # (Manual) D-Dimer Sodium 131 L Chloride 92.9 L Carbon Dioxide 33 H BUN Creatinine 0.4 L Glucose Calcium 8.0 L Total Creatine Kinase CK-MB (CK-2) Rel Index NT-Pro-B Natriuret Pep Total Protein Albumin Ur Specific [place] Urine WBC (Auto)
[2017-11-21] MEDS: SODIUM CHLORIDE FLUSH SYRINGE 10 ML IV SCH ×2 (17:43→21:19)
[2017-11-21] MEDS: MILK OF MAGNESIA PO PRN (17:43)
--- NOTE | 2017-11-22 08:33 | Ultrasound Report ---
ULTRASOUND ABDOMEN LIMITED: TECHNIQUE: Transabdominal ultrasound with color Doppler interrogation. HISTORY: right upper quadrant abdominal pain. COMPARISON: CT abdomen with contrast dated 11/19/17. FINDINGS: LIVER: Normal. BILIARY SYSTEM: Normal. PANCREAS: Obscured by bowel gas. RIGHT KIDNEY: Normal. PROXIMAL AORTA: Normal. ASCITES: None. A large right pleural effusion is partially imaged. IMPRESSION: Unremarkable right upper quadrant ultrasound. The pancreas is obscured. Large right pleural effusion.
[2017-11-22] MEDS: DUONEB *Not for PRN Use IH SCH ×3 (09:05→20:54)
[2017-11-22] MEDS: SODIUM CHLORIDE FLUSH SYRINGE 10 ML IV SCH ×2 (10:22→21:38)
[2017-11-22] MEDS: LOVENOX SUB-Q SCH (10:22)
--- NOTE | 2017-11-22 13:30 | Progress Note ---
Assessment and Plan Bilateral pleural effusions , chronic. Right pleural effusion , partially loculated? Prior tap transudative HX prior Rt Pneumothorax History of COPD.Improved History of congestive heart failure Right upper quadrant abdominal pain rule out gallbladder disease. US done Recommendation: Get pleural chemistries report- Echocardiogram Complete pulm function testing as outpatient to assess underlying COPD. f/u US results regarding right upper quadrant abdominal pain Subjective Date of service: 11/22/17 Interval history: reports no pain now. Occasional cough.No SOB Objective Vital Signs - 12hr 11/22/17 11/22/17 11/22/17 05:15 07:20 09:08 Temperature 97.9 F 97.6 F Pulse Rate 76 Pulse Rate [ 67 Posterior Bilateral Throughout] Respiratory 21 19 Rate Respiratory 20 Rate [Posterior Bilateral Throughout] Blood Pressure 119/70 Blood Pressure 134/77 [Right] O2 Sat by Pulse 97 Oximetry 11/22/17 11/22/17 11/22/17 09:09 09:20 09:51 Temperature Pulse Rate Pulse Rate [ 69 Posterior Bilateral Throughout] Respiratory 19 Rate Respiratory 20 Rate [Posterior Bilateral Throughout] Blood Pressure Blood Pressure [Right] O2 Sat by Pulse 96 91 Oximetry 11/22/17 11/22/17 13:05 13:08 Temperature 97.6 F Pulse Rate 40 L Pulse Rate [ 72 Posterior Bilateral Throughout] Respiratory 20 Rate Respiratory 18 Rate [Posterior Bilateral Throughout] Blood Pressure Blood Pressure 141/85 [Right] O2 Sat by Pulse 100 Oximetry Constitutional: no acute distress Eyes: non-icteric ENT: oropharynx moist Neck: supple, no lymphadenopathy, no JVD Ascultation: Left: rhonchi (mild), Bilateral: clear, diminished breath sounds ( right base) Percussion: Right: dull ( right lower lobe) Cardiovascular: regular rate and rhythm Gastrointestinal: normoactive bowel sounds, non-tender Extremities: no cyanosis, no edema Neurologic: normal mental status, non-focal exam, pupils equal and round, CN II- XII normal Psychiatric: mood appropriate CBC and BMP: 11/21/17 08:01 11/21/17 08:01 ABG, PT/INR, D-dimer: PT/INR, D-dimer PT 12.5 Sec. (12.2-14.9) 11/19/17 16:49 INR 0.89 (0.87-1.13) 11/19/17 16:49 D-Dimer 1457.94 ng/mlDDU (0-234) H 11/19/17 16:49 Abnormal lab findings: Abnormal Labs 11/19/17 11/19/17 11/19/17 16:29 16:29 16:49 WBC 14.1 H Hgb Hct MCHC Seg Neuts % (Manual) 93.0 H Lymphocytes % (Manual) 1.0 L Seg Neutrophils # Man 13.1 H Lymphocytes # (Manual) 0.1 L Monocytes # (Manual) D-Dimer 1457.94 H Sodium 132 L Chloride 89.5 L Carbon Dioxide 34 H BUN 23 H Creatinine 0.6 L Glucose 116 H Calcium 8.1 L Total Creatine Kinase CK-MB (CK-2) Rel Index NT-Pro-B Natriuret Pep Total Protein Albumin Ur Specific [place] Urine WBC (Auto) 11/19/17 11/19/17 11/20/17 16:49 19:49 04:35 WBC 12.4 H Hgb 11.2 L Hct 33.3 L MCHC Seg Neuts % (Manual) 81.0 H Lymphocytes % (Manual) 7.0 L Seg Neutrophils # Man 10.0 H Lymphocytes # (Manual) 0.9 L Monocytes # (Manual) 0.9 H D-Dimer Sodium 132 L Chloride 88.5 L Carbon Dioxide 33 H BUN 24 H Creatinine 0.6 L Glucose 109 H Calcium 8.3 L Total Creatine Kinase 14 L CK-MB (CK-2) Rel Index 20.7 H NT-Pro-B Natriuret Pep Total Protein 4.8 L Albumin 2.7 L Ur Specific [place] 1.039 H Urine WBC (Auto) 79.0 H 11/20/17 11/20/17 11/21/17 04:35 18:06 08:01 WBC Hgb 11.1 L Hct 31.4 L MCHC 35 H Seg Neuts % (Manual) Lymphocytes % (Manual) Seg Neutrophils # Man Lymphocytes # (Manual) Monocytes # (Manual) D-Dimer Sodium 131 L Chloride 89.9 L Carbon Dioxide 36 H BUN Creatinine 0.6 L Glucose Calcium 7.9 L Total Creatine Kinase CK-MB (CK-2) Rel Index NT-Pro-B Natriuret Pep 910.2 H Total Protein Albumin Ur Specific [place] Urine WBC (Auto) 11/21/17 08:01 WBC Hgb Hct MCHC Seg Neuts % (Manual) Lymphocytes % (Manual) Seg Neutrophils # Man Lymphocytes # (Manual) Monocytes # (Manual) D-Dimer Sodium 131 L Chloride 92.9 L Carbon Dioxide 33 H BUN Creatinine 0.4 L Glucose Calcium 8.0 L Total Creatine Kinase CK-MB (CK-2) Rel Index NT-Pro-B Natriuret Pep Total Protein Albumin Ur Specific [place] Urine WBC (Auto) Additional Studies: Laboratory Tests 11/02/17 11/02/17 11/21/17 12:00 12:00 00:01 Fluid Color [place] Fluid Appearance Hazy Fluid WBC 108 Fluid Seg Neutrophils 6.0 23.0 Fluid Lymphocytes 39.0 47.0 Fluid Monocytes 55.0 30.0 Fluid Eosinophils 0 Fluid Glucose 112 H Fluid Total Protein 4.0 L Fluid LDH 129
--- NOTE | 2017-11-22 15:14 | Progress Note ---
Assessment and Plan Assessment and plan: RUQ Abdominal pain,improved Gall bladder Ultrasound unremarkable Bilateral pleural effusion right more than left. Had thoracentesis 1950ml from right yesterday 11/21. Pleural fluid results pending Pulm following Chronic respiratory failure due to COPD, on home Oxygen. COPD on home Oxygen. Continue supplemental Oxygen Chronic systolic CHF. Echocardiogram done last month show EF 45-50% Hyponatremia. Na 131 today May be due to CHF. Repeat labs in am left kidney cyst . To follow as outpatient DVT prophylaxis with Lovenox. Full code status. Protein energy malnutrition. Consult Gyroscope Technician. History Interval history: Feels better, Less shortness of breath, No fever Hospitalist Physical - Physical exam Narrative exam: General:Not in acute distress, lying in bed,malnourished HEENT:Normocephalic, atraumatic Neck:supple,no JVD Lungs: Clear to auscultation, Decreased breath sounds bibasilar, no rales, no wheeze Heart:S1 and S2 regular, no murmurs, rubs or gallop Abd: soft, non tender,non distended, normal bowel sounds Ext: Edema, no clubbing or cyanosis Neuro:Awake,alert,oriented x 3, moves all extremities, Psych:normal mood - Constitutional Vitals: Temp Pulse Resp BP Pulse Ox 97.6 F 74 18 141/85 100 11/22/17 13:08 11/22/17 13:17 11/22/17 13:17 11/22/17 13:08 11/22/17 13:08 Results - Labs CBC & Chem 7: 11/21/17 08:01 11/21/17 08:01 Labs: Laboratory Last Values WBC 10.9 K/mm3 (4.5-11.0) 11/21/17 08:01 RBC 3.65 M/mm3 (3.65-5.03) 11/21/17 08:01 Hgb 11.1 gm/dl (11.8-15.2) L 11/21/17 08:01 Hct 31.4 % (35.5-45.6) L 11/21/17 08:01 MCV 86 fl (84-94) 11/21/17 08:01 MCH 30 pg (28-32) 11/21/17 08:01 MCHC 35 % (32-34) H 11/21/17 08:01 RDW 13.3 % (13.2-15.2) 11/21/17 08:01 Plt Count 163 K/mm3 (140-440) 11/21/17 08:01 Add Manual Diff Complete 11/20/17 04:35 Total Counted 100 11/20/17 04:35 Seg Neutrophils % Practice Managers 11/19/17 16:29 Seg Neuts % (Manual) 81.0 % (40.0-70.0) H 11/20/17 04:35 Band Neutrophils % 5.0 % 11/20/17 04:35 Lymphocytes % (Manual) 7.0 % (13.4-35.0) L 11/20/17 04:35 Reactive Lymphs % (Man) 0 % 11/20/17 04:35 Monocytes % (Manual) 7.0 % (0.0-7.3) 11/20/17 04:35 Eosinophils % (Manual) 0 % (0.0-4.3) 11/20/17 04:35 Basophils % (Manual) 0 % (0.0-1.8) 11/20/17 04:35 Metamyelocytes % 0 % 11/20/17 04:35 Myelocytes % 0 % 11/20/17 04:35 Promyelocytes % 0 % 11/20/17 04:35 Blast Cells % 0 % 11/20/17 04:35 Nucleated RBC % Not Reportable 11/20/17 04:35 Seg Neutrophils # Man 10.0 K/mm3 (1.8-7.7) H 11/20/17 04:35 Band Neutrophils # 0.6 K/mm3 11/20/17 04:35 Lymphocytes # (Manual) 0.9 K/mm3 (1.2-5.4) L 11/20/17 04:35 Abs React Lymphs (Man) 0.0 K/mm3 11/20/17 04:35 Monocytes # (Manual) 0.9 K/mm3 (0.0-0.8) H 11/20/17 04:35 Eosinophils # (Manual) 0.0 K/mm3 (0.0-0.4) 11/20/17 04:35 Basophils # (Manual) 0.0 K/mm3 (0.0-0.1) 11/20/17 04:35 Metamyelocytes # 0.0 K/mm3 11/20/17 04:35 Myelocytes # 0.0 K/mm3 11/20/17 04:35 Promyelocytes # 0.0 K/mm3 11/20/17 04:35 Blast Cells # 0.0 K/mm3 11/20/17 04:35 WBC Morphology Not Reportable 11/20/17 04:35 Hypersegmented Neuts Not Reportable 11/20/17 04:35 Hyposegmented Neuts Not Reportable 11/20/17 04:35 Hypogranular Neuts Not Reportable 11/20/17 04:35 Smudge Cells Not Reportable 11/20/17 04:35 Toxic Granulation Not Reportable 11/20/17 04:35 Toxic Vacuolation Not Reportable 11/20/17 04:35 Dohle Bodies Not Reportable 11/20/17 04:35 Pelger-Huet Anomaly Not Reportable 11/20/17 04:35 Armando Rods Not Reportable 11/20/17 04:35 Platelet Estimate Appears normal 11/20/17 04:35 Clumped Platelets Not Reportable 11/20/17 04:35 Plt Clumps, EDTA Not Reportable 11/20/17 04:35 Large Platelets Not Reportable 11/20/17 04:35 Giant Platelets Not Reportable 11/20/17 04:35 Platelet Satelliting Not Reportable 11/20/17 04:35 Plt Morphology Comment Not Reportable 11/20/17 04:35 RBC Morphology Normal 11/20/17 04:35 Dimorphic RBCs Not Reportable 11/20/17 04:35 Polychromasia Not Reportable 11/20/17 04:35 Hypochromasia Not Reportable 11/20/17 04:35 Poikilocytosis Not Reportable 11/20/17 04:35 Anisocytosis Not Reportable 11/20/17 04:35 Microcytosis Not Reportable 11/20/17 04:35 Macrocytosis Not Reportable 11/20/17 04:35 Spherocytes Not Reportable 11/20/17 04:35 Pappenheimer Bodies Not Reportable 11/20/17 04:35 Sickle Cells Not Reportable 11/20/17 04:35 Target Cells Not Reportable 11/20/17 04:35 Tear Drop Cells Not Reportable 11/20/17 04:35 Ovalocytes Not Reportable 11/20/17 04:35 Helmet Cells Not Reportable 11/20/17 04:35 [place] Bodies Not Reportable 11/20/17 04:35 [place] Rings Not Reportable 11/20/17 04:35 [place] Cells Not Reportable 11/20/17 04:35 Bite Cells Not Reportable 11/20/17 04:35 Crenated Cell Not Reportable 11/20/17 04:35 Elliptocytes Not Reportable 11/20/17 04:35 Acanthocytes (Spur) Not Reportable 11/20/17 04:35 Rouleaux Not Reportable 11/20/17 04:35 Hemoglobin C Crystals Not Reportable 11/20/17 04:35 Schistocytes Not Reportable 11/20/17 04:35 Malaria parasites Not Reportable 11/20/17 04:35 Domenico Bodies Not Reportable 11/20/17 04:35 Hem Pathologist Commnt No 11/20/17 04:35 PT 12.5 Sec. (12.2-14.9) 11/19/17 16:49 INR 0.89 (0.87-1.13) 11/19/17 16:49 APTT 24.2 Sec. (24.2-36.6) 11/19/17 16:49 D-Dimer 1457.94 ng/mlDDU (0-234) H 11/19/17 16:49 Sodium 131 mmol/L (137-145) L 11/21/17 08:01 Potassium 4.2 mmol/L (3.6-5.0) 11/21/17 08:01 Chloride 92.9 mmol/L (98-107) L 11/21/17 08:01 Carbon Dioxide 33 mmol/L (22-30) H 11/21/17 08:01 Anion Gap 9 mmol/L 11/21/17 08:01 BUN 15 mg/dL (9-20) 11/21/17 08:01 Creatinine 0.4 mg/dL (0.8-1.5) L 11/21/17 08:01 Estimated GFR > 60 ml/min 11/21/17 08:01 BUN/Creatinine Ratio 38 % 11/21/17 08:01 Glucose 90 mg/dL (75-100) 11/21/17 08:01 Calcium 8.0 mg/dL (8.4-10.2) L 11/21/17 08:01 Magnesium 2.00 mg/dL (1.7-2.3) 11/19/17 16:49 Total Bilirubin 0.60 mg/dL (0.1-1.2) 11/19/17 16:49 AST 12 units/L (5-40) 11/19/17 16:49 ALT 12 units/L (7-56) 11/19/17 16:49 Alkaline Phosphatase 85 units/L (35-129) 11/19/17 16:49 Total Creatine Kinase 14 units/L (55-170) L 11/19/17 16:49 CK-MB (CK-2) 2.9 ng/mL (0.0-4.0) 11/19/17 16:49 CK-MB (CK-2) Rel Index 20.7 (0-4) H 11/19/17 16:49 Troponin T 0.022 ng/mL (0.00-0.029) 11/19/17 16:49 NT-Pro-B Natriuret Pep 910.2 pg/mL (0-900) H 11/20/17 18:06 Total Protein 4.8 g/dL (6.3-8.2) L 11/19/17 16:49 Albumin 2.7 g/dL (3.9-5) L 11/19/17 16:49 Albumin/Globulin Ratio 1.3 % 11/19/17 16:49 Lipase 14 units/L (13-60) 11/19/17 16:49 Urine Color Yellow (Yellow) 11/19/17 19:49 Urine Turbidity Clear (Clear) 11/19/17 19:49 Urine pH 6.0 (5.0-7.0) 11/19/17 19:49 Ur Specific [place] 1.039 (1.003-1.030) H 11/19/17 19:49 Urine Protein <15 mg/dl mg/dL (Negative) 11/19/17 19:49 Urine Glucose (UA) Neg mg/dL (Negative) 11/19/17 19:49 Urine Ketones Neg mg/dL (Negative) 11/19/17 19:49 Urine Blood Neg (Negative) 11/19/17 19:49 Urine Nitrite Neg (Negative) 11/19/17 19:49 Urine Bilirubin Neg (Negative) 05/11/18 19:49 Urine Urobilinogen < 2.0 mg/dL (<2.0) 11/19/17 19:49 Ur Leukocyte Esterase Lg (Negative) 11/19/17 19:49 Urine WBC (Auto) 79.0 /HPF (0.0-6.0) H 11/19/17 19:49 Urine RBC (Auto) 3.0 /HPF (0.0-6.0) 11/19/17 19:49 U Epithel Cells (Auto) 1.0 /HPF (0-13.0) 11/19/17 19:49 Urine Bacteria (Auto) 1+ /HPF (Negative) 11/19/17 19:49 Urine Mucus Few /HPF 11/19/17 19:49 Fluid Type Pleural 11/21/17 00:01 Fluid Color Norah 11/21/17 00:01 Fluid Appearance Hazy 11/21/17 00:01 Fluid WBC 108 /mm3 11/21/17 00:01 Fluid RBC 7275 /mm3 11/21/17 00:01 Fluid Seg Neutrophils 23.0 % 11/21/17 00:01 Fluid Lymphocytes 47.0 % 11/21/17 00:01 Fluid Reactive Lymphs 0 % 11/21/17 00:01 Fluid Monocytes 30.0 % 11/21/17 00:01 Fluid Eosinophils 0 % 11/21/17 00:01 Fluid Basophils 0 % 11/21/17 00:01
[2017-11-22] MEDS: MILK OF MAGNESIA PO PRN (16:25)
[2017-11-23 07:34] LABS: BUN/Creatinine Ratio 28; Blood Urea Nitrogen 14 mg/dL (9-20); Hemolysis Index 2
[2017-11-23 07:58] LABS: Hematocrit 30.8 % (35.5-45.6); Hemoglobin 10.2 gm/dl (11.8-15.2); Mean Corpuscular HGB Conc 33 % (32-34); Mean Corpuscular Hemoglobin 29 pg (28-32); Mean Corpuscular Volume 88 fl (84-94); Platelet Count 199 K/mm3 (140-440); Red Cell Distribution Width 13.1 % (13.2-15.2)
[2017-11-23 08:09] VITALS: BP 133/80
[2017-11-23] MEDS: DUONEB *Not for PRN Use IH SCH ×2 (08:19→14:56)
[2017-11-23] MEDS: LOVENOX SUB-Q SCH (10:13)
[2017-11-23] MEDS: SODIUM CHLORIDE FLUSH SYRINGE 10 ML IV SCH (10:13)
--- NOTE | 2017-11-23 12:53 | Progress Note ---
Assessment and Plan Imp: 1. R Pleural effusion, ? etiology; culture and cytology negative; DDx includes parapneumonic (had consolidation 10/27 that is better) versus CHF (see 10/27 Echo) 2. Centrilobular emphysema 3. Cachexia 4. Chronic respiratory failure, hypoxia 5. PTX/pneumonia, resolved 6. L basilar atelectasis, ? mucous plugging Rec: 1. Okay to d/c home pulm-[place]; he states he has everything he needs including home O2 2. He cannot tell me who is primary dumping machine operator is; instructed to f/u them or with us in 1-2 weeks, he agrees Plan of care reviewed with patient, he understands/agrees Subjective Date of service: 11/23/17 Principal diagnosis: pleural effusion Interval history: No events. No complaints. Wants to go home. Active Medications Acetaminophen (Tylenol) 650 mg PO Q4H PRN PRN Reason: Pain MILD(1-3)/Fever >100.5/PRICNE Albuterol/Ipratropium (Duoneb *Not For Prn Use*) 1 ampul IH TIDRT [facility] Last Admin: 11/23/17 08:19 Dose: 1 ampul Enoxaparin Sodium (Lovenox) 40 mg SUB-Q QDAY@1000 [facility] Last Admin: 11/23/17 10:13 Dose: 40 mg Magnesium Hydroxide (Milk Of Magnesia) 30 ml PO Q4H PRN PRN Reason: Constipation Last Admin: 11/22/17 16:25 Dose: 30 ml Morphine Sulfate (Morphine) 2 mg IV Q4H PRN PRN Reason: Pain, Moderate (4-6) Last Admin: 11/20/17 23:13 Dose: 2 mg Ondansetron HCl (Zofran) 4 mg IV Q8H PRN PRN Reason: Nausea And Vomiting Sodium Chloride (Sodium Chloride Flush Syringe 10 Ml) 10 ml IV BID [facility] Last Admin: 11/23/17 10:13 Dose: 10 ml Sodium Chloride (Sodium Chloride Flush Syringe 10 Ml) 10 ml IV PRN PRN PRN Reason: LINE FLUSH Objective Vital Signs - 12hr 11/23/17 11/23/17 11/23/17 01:17 05:13 07:36 Temperature 97.6 F 98.1 F Pulse Rate 57 L Pulse Rate [ Anterior Bilateral Throughout] Pulse Rate [ Apical] Pulse Rate [ Posterior Bilateral Throughout] Respiratory 20 18 Rate Respiratory Rate [Anterior Bilateral Throughout] Respiratory Rate [Posterior Bilateral Throughout] Blood Pressure 133/80 Blood Pressure 137/71 [Right] O2 Sat by Pulse 97 100 Oximetry 11/23/17 11/23/17 11/23/17 08:12 08:23 08:49 Temperature Pulse Rate Pulse Rate [ 75 Anterior Bilateral Throughout] Pulse Rate [ 101 H Apical] Pulse Rate [ 68 Posterior Bilateral Throughout] Respiratory 19 Rate Respiratory 20 Rate [Anterior Bilateral Throughout] Respiratory 22 Rate [Posterior Bilateral Throughout] Blood Pressure Blood Pressure [Right] O2 Sat by Pulse 94 Oximetry 11/23/17 11:41 Temperature 97.6 F Pulse Rate 101 H Pulse Rate [ Anterior Bilateral Throughout] Pulse Rate [ Apical] Pulse Rate [ Posterior Bilateral Throughout] Respiratory 19 Rate Respiratory Rate [Anterior Bilateral Throughout] Respiratory Rate [Posterior Bilateral Throughout] Blood Pressure 133/80 Blood Pressure [Right] O2 Sat by Pulse 100 Oximetry Constitutional: no acute distress, alert, other (cachectic) Eyes: non-icteric ENT: oropharynx moist Neck: supple, no lymphadenopathy Effort: normal Ascultation: Bilateral: clear Cardiovascular: regular rate and rhythm (no mrg) Gastrointestinal: normoactive bowel sounds, non-tender Integumentary: normal Extremities: no cyanosis, no edema, edema (trace bilateral LE edema) Neurologic: normal mental status, non-focal exam, pupils equal and round, CN II- XII normal Psychiatric: mood appropriate, affect normal CBC and BMP: 11/23/17 07:22 11/23/17 06:10 ABG, PT/INR, D-dimer: PT/INR, D-dimer PT 12.5 Sec. (12.2-14.9) 11/19/17 16:49 INR 0.89 (0.87-1.13) 11/19/17 16:49 D-Dimer 1457.94 ng/mlDDU (0-234) H 11/19/17 16:49 Abnormal lab findings: Abnormal Labs 11/19/17 11/19/17 11/19/17 16:29 16:29 16:49 WBC 14.1 H RBC Hgb Hct MCHC RDW Seg Neuts % (Manual) 93.0 H Lymphocytes % (Manual) 1.0 L Seg Neutrophils # Man 13.1 H Lymphocytes # (Manual) 0.1 L Monocytes # (Manual) D-Dimer 1457.94 H Sodium 132 L Chloride 89.5 L Carbon Dioxide 34 H BUN 23 H Creatinine 0.6 L Glucose 116 H Calcium 8.1 L Total Creatine Kinase CK-MB (CK-2) Rel Index NT-Pro-B Natriuret Pep Total Protein Albumin Ur Specific [place] Urine WBC (Auto) 11/19/17 11/19/17 11/20/17 16:49 19:49 04:35 WBC 12.4 H RBC Hgb 11.2 L Hct 33.3 L MCHC RDW Seg Neuts % (Manual) 81.0 H Lymphocytes % (Manual) 7.0 L Seg Neutrophils # Man 10.0 H Lymphocytes # (Manual) 0.9 L Monocytes # (Manual) 0.9 H D-Dimer Sodium 132 L Chloride 88.5 L Carbon Dioxide 33 H BUN 24 H Creatinine 0.6 L Glucose 109 H Calcium 8.3 L Total Creatine Kinase 14 L CK-MB (CK-2) Rel Index 20.7 H NT-Pro-B Natriuret Pep Total Protein 4.8 L Albumin 2.7 L Ur Specific [place] 1.039 H Urine WBC (Auto) 79.0 H 11/20/17 11/20/17 11/21/17 04:35 18:06 08:01 WBC RBC Hgb 11.1 L Hct 31.4 L MCHC 35 H RDW Seg Neuts % (Manual) Lymphocytes % (Manual) Seg Neutrophils # Man Lymphocytes # (Manual) Monocytes # (Manual) D-Dimer Sodium 131 L Chloride 89.9 L Carbon Dioxide 36 H BUN Creatinine 0.6 L Glucose Calcium 7.9 L Total Creatine Kinase CK-MB (CK-2) Rel Index NT-Pro-B Natriuret Pep 910.2 H Total Protein Albumin Ur Specific [place] Urine WBC (Auto) 11/21/17 11/23/17 11/23/17 08:01 06:10 07:22 WBC RBC 3.50 L Hgb 10.2 L Hct 30.8 L MCHC RDW 13.1 L Seg Neuts % (Manual) Lymphocytes % (Manual) Seg Neutrophils # Man Lymphocytes # (Manual) Monocytes # (Manual) D-Dimer Sodium 131 L 135 L Chloride 92.9 L 94.7 L Carbon Dioxide 33 H BUN Creatinine 0.4 L 0.5 L Glucose 121 H Calcium 8.0 L 8.0 L Total Creatine Kinase CK-MB (CK-2) Rel Index NT-Pro-B Natriuret Pep Total Protein Albumin Ur Specific [place] Urine WBC (Auto) Chest x-ray: report reviewed, image reviewed CT scan - chest: report reviewed, image reviewed
--- NOTE | 2017-11-23 12:55 | Discharge Summary ---
Providers - Providers Date of Admission: 11/19/17 22:09 Attending physician: BALAJI DUMONT MD 11/19/17 22:09 Consult to Physician [CONS] Routine Comment: Consulting Provider: DEYSI VELASQUEZ Physician Instructions: Reason For Exam: loc pleural effusion 11/22/17 15:08 Consult to Dietitian/Nutrition [CONS] Routine Physician Instructions: Reason For Exam: Reason for Consult: Malnutrition Primary care physician: ONEIL TURCIOS MD Hospitalization Reason for admission: shortness of breath Condition: Stable Hospital course: 77-year-old man with a history of CHF, COPD on home oxygen, so the emergency room with complaints of abdominal pain located in the right upper quadrant, stated that the pain feels like his ulcer pain, constant, intensity while attending, no radiation, he can't identify exacerbating or relieving factors. No nausea vomiting, diarrhea, fever or chills. Complained of cough productive of yellow phlegm, shortness of breath. Patient was treated for COPD exacerbation , heart failure, Recent Echo reviewed, EF 45-50% patient had a thoracentesis which revealed transudate, 1950ml was removed. He is clinically stable for discharge and to follow result with pulmonary Bilateral pleural effusion right more than left. Chronic respiratory failure due to COPD, on home Oxygen. COPD with acute exacerbation on home Oxygen. Chronic systolic CHF. Hyponatremia. Na 131 today left kidney cyst . advised To follow as outpatient Protein energy malnutrition. Centrilobular emphysema Cachexia L basilar atelectasis, Disposition: DC/[place]-06 HOME UNDER HOME HLTH Time spent for discharge: 35 mins Core Measure Documentation - Palliative Care Palliative Care/ Comfort Measures: Not Applicable - Core Measures Any of the following diagnoses?: none - VTE Discharge Requirements Deep Vein Thrombosis/Pulmonary Embolism Present on Admission: No Exam - Physical Exam Narrative exam: General:Not in acute distress, lying in bed,malnourished HEENT:Normocephalic, atraumatic Neck:supple,no JVD Lungs: Clear to auscultation, Decreased breath sounds bibasilar, no rales, no wheeze Heart:S1 and S2 regular, no murmurs, rubs or gallop Abd: soft, non tender,non distended, normal bowel sounds Ext: Edema, no clubbing or cyanosis Neuro:Awake,alert,oriented x 3, moves all extremities, Psych:normal mood - Constitutional Vitals: Temp Pulse Resp BP Pulse Ox 97.6 F 101 H 19 133/80 100 11/23/17 11:41 11/23/17 11:41 11/23/17 11:41 11/23/17 11:41 11/23/17 11:41 Plan Activity: advance as tolerated, fall precautions Diet: low salt Special Instructions: record daily BP diary, home oxygen via (nasal cannula @ 2 liters per minute) Durable Medical Equipment Needed Upon Discharge: Oxygen, other Follow up with: ONEIL TURCIOS MD [Primary Care Provider] - 3-5 Days JOHNNY RAZA MD [Staff Physician] - 14 Days
--- NOTE | 2017-11-23 16:36 | Query- Dyspnea ---
Dayanara De La Cruz____Sidney Date:____11/23/2017 Learning Support Teacher/CDS:____Nancy Phone#:___[phone] Exercise your independent professional judgment when responding to query. Questions asked do not imply a particular answer is desired or expected. We greatly appreciate your clarification on this issue. Clinical Documentation States: 77 Year old male was admitted on 11/19/2017 for SOB. The Discharge summary states "Bilateral pleural effusion right more than left. Had thoracentesis 1950ml from right yesterday 11/21." Clinical Findings Show: Oxygen Delivery Method: Nasal Canal Oxygen Flow Rate 11/19 (18:17): 2.5 11/19 (19:30): 2 11/21: 3 O2 SAT: 76 PA (11/19): 107 RR (11/19): 28 Please clarify if the patient had any of the following conditions based on the above clinical findings: [ ] Respiratory Failure [ ] Acute [ X] Acute on Chronic [ ] Chronic [ ] Respiratory failure due to trauma [ ] Acute Respiratory Distress Syndrome [ ] Other: [ ] Unable to determine [ ] Comment/Explanation: Present on Admission: [ X] Yes (Y) [ ] Clinically undeterminable (W) [ ] No (N) Please also document response in your Progress Notes and/or Discharge Summary and indicate if the condition was present on admission. OJ
== END 2017-11-23 16:15 | disposition home health service (06) | DRG 291 ==
LOC: ED 14:04 → 4A 22:09
PROVIDERS: ADMIT Internal Medicine; ATTEND Internal Medicine
PROC: 0W993ZX Drainage of Right Pleural Cavity, Percutaneous Approach, Diagnostic (ICD-10-PCS; principal; 2017-11-21)
PROC: BB4BZZZ Ultrasonography of Pleura (ICD-10-PCS; 2017-11-21)
DX: I11.0 Hypertensive heart disease with heart failure (principal); J18.9 Pneumonia, unspecified organism; J96.20 Acute and chronic respiratory failure, unspecified whether with hypoxia or hypercapnia; E87.1 Hypo-osmolality and hyponatremia; J90 Pleural effusion, not elsewhere classified; E46 Unspecified protein-calorie malnutrition; R64 Cachexia; I50.22 Chronic systolic (congestive) heart failure; N28.1 Cyst of kidney, acquired; J43.2 Centrilobular emphysema; R10.11 Right upper quadrant pain; Z82.49 Family history of ischemic heart disease and other diseases of the circulatory system; Z79.899 Other long term (current) drug therapy; Z79.51 Long term (current) use of inhaled steroids; Z87.891 Personal history of nicotine dependence
CPT/HCPCS: 32555; 36415; 71045; 71046; 71260; 74160; 76705; 80048; 80053; 81001; 82550; 82553; 82947; 83605; 83690; 83735; 83880; 84160; 84484; 85007; 85025; 85027; 85379; 85610; 85730; 87116; 88112; 88305; 89051; 93005; 93010; 93970; 94640; 94760; 99285; J1650; J1956; J2270; Q9967